=== PATIENT | female | born 1995 | race Caucasian/White ===

== ENCOUNTER 2023-09-19 02:08 | Emergency (ER) | payer BC, SELFPAY ==
[2023-09-19 02:17] VITALS: BP 140/97; PULSE 75; TEMP 37.3; O2SAT 95; BMI 63.5
--- NOTE | 2023-09-19 02:41 | ED.ABDPAIN1 ---
HPI - Abdominal Pain General Chief Complaint: Abdominal Pain Stated Complaint: abd/back pain Time Seen by Provider: 09/19/23 02:36 Source: patient Mode of arrival: Wheelchair Limitations: no limitations History of Present Illness HPI narrative: patient presents complaining of left flank pain. States she was seen at [facility] 2-[address] was performed and neg. Discharged home with Levsin and Toradol. last used these medication yesterday AM. Just got off work and now presents here for same pain. No fever or urinary symptoms Related Data Allergies Allergy/AdvReac Type Severity Reaction Status Date / Time lamotrigine Allergy Mild Rash Verified 09/19/23 02:22 fluticasone [From [employer]] Allergy Rash Verified 09/19/23 02:22 Review of Systems ROS Status of ROS 10 or more systems reviewed and unremarkable except as noted in history and below Exam Constitutional Vital Signs, click to edit/add: Last Vital Signs Temp 99.2 F 09/19/23 02:17 Pulse 75 09/19/23 02:17 Resp 18 09/19/23 02:17 BP 140/97 H 09/19/23 02:17 Pulse Ox 95 09/19/23 02:17 O2 Del Method Room Air 09/19/23 02:17 Common normals: no apparent distress, oriented x3, alert and well nourished [facility] Common normals: normocephalic and head/scalp atraumatic Eye Common normals: PERRL, EOMs intact bilaterally and conjunctivae normal Respiratory Common normals: normal respiratory effort, no retractions and no use of accessory muscles Cardio Common normals: regular rate, regular rhythm, S1 normal heart sound and S2 normal heart sound GI Common normals: Normal to inspection, nondistended, normoactive bowel sounds present Other: mild tenderness LLQ Extremity Common normals: normal to inspection and full ROM Neuro Common normals: oriented x3, CN's II-XII intact bilaterally, moves all extremities and no focal motor deficits Psych Appearance: grossly normal Course Vital Signs Vital signs: Vital Signs Temperature 99.2 F 09/19/23 02:17 Pulse Rate 75 09/19/23 02:17 Respiratory Rate 18 09/19/23 02:17 Blood Pressure 140/97 H 09/19/23 02:17 Pulse Oximetry 95 09/19/23 02:17 Oxygen Delivery Method Room Air 09/19/23 02:17 Temperature 99.2 F 09/19/23 02:17 Pulse Rate 75 09/19/23 02:17 Respiratory Rate 18 09/19/23 02:17 Blood Pressure 140/97 H 09/19/23 02:17 Pulse Oximetry 95 09/19/23 02:17 Oxygen Delivery Method Room Air 09/19/23 02:17 MDM - Abdominal Pain MDM Narrative Medical decision making narrative: patient presents complaining of LLQ pain . Was seen at [facility] 1 days ago with same complaint. CT report retained for that visit and was neg. Patient treated in the department with Bentyl and Toradol and is feeling better. labs WNL except UA with elevated WBC(2-5 WBC) but mod. epithelial cells. Patient denies urinary symptoms. Urine culture ordered. Patient discharged home to followup with her doctor Lab Data Labs: Lab Results 09/19/23 09/19/23 Range/Units 03:10 03:15 WBC 10.5 (4.0-11.0) 10^3/uL RBC 4.31 (4.20-5.40) 10^6/uL Hgb 13.0 (12.0-16.0) g/dL Hct 38.6 (36.0-48.0) % MCV 89.6 (81.0-99.0) fL MCH 30.2 (26.7-34.0) pg MCHC 33.7 (29.9-35.2) g/dL RDW 12.0 (11.0-15.0) % Plt Count 261 (150-450) 10^3/uL MPV 10.3 (9.5-13.5) fL Neut % (Auto) 67.2 (43.0-75.0) % Lymph % (Auto) 27.3 (20.5-60.0) % [place] % (Auto) 3.2 (1.7-12.0) % Eos % (Auto) 1.4 (0.9-7.0) % Baso % (Auto) 0.6 (0.2-2.0) % Neut # (Auto) 7.0 H (1.4-6.5) 10^3/uL Lymph # (Auto) 2.9 (1.2-3.8) 10^3/uL [place] # (Auto) 0.3 (0.3-0.8) 10^3/uL Eos # (Auto) 0.2 (0.0-0.7) 10^3/uL Baso # (Auto) 0.1 (0.0-0.1) 10^3/uL Abs Immat Gran (auto) 0.03 (0.00-0.03) 10^3/uL Imm/Tot Granulo (auto) 0.3 (0.0-0.5) % Sodium 135 L (136-145) mmol/L Potassium 3.7 (3.5-5.1) mmol/L Chloride 101 (98-107) mmol/L Carbon Dioxide 27.5 (21.0-32.0) mmol/L Anion Gap 10.2 BUN 12.0 (7.0-18.0) mg/dL Creatinine 0.90 (0.55-1.02) mg/dL Est GFR ( Amer) >60 (>=60) Est GFR (Non-Af Amer) >60 (>=60) BUN/Creatinine Ratio 13.3 Glucose 105 (74-106) mg/dL Calcium 9.0 (8.5-10.1) mg/dL Total Bilirubin 0.6 (0.2-1.0) mg/dL AST 16 (15-37) U/L ALT 29 (14-59) U/L Alkaline Phosphatase 74 (46-116) U/L Total Protein 7.3 (6.4-8.2) g/dL Albumin 3.2 L (3.4-5.0) g/dL Globulin 4.1 g/dL Albumin/Globulin Ratio 0.8 Urine Color Lt. yellow (YELLOW) Urine Clarity Clear (CLEAR) Urine pH 6.0 (5.0-9.0) Ur Specific [place] 1.020 (1.005-1.025) Urine Protein Negative (NEG/TRACE) mg/dL Urine Glucose (UA) Negative (NEGATIVE) mg/dL Urine Ketones Negative (NEGATIVE) mg/dL Urine Occult Blood Negative (NEGATIVE) Urine Nitrite Negative (NEGATIVE) Urine Bilirubin Negative (NEGATIVE) Urine Urobilinogen 1.0 (0.2-1.0) EU/dL Ur Leukocyte Esterase Small A (NEGATIVE) Urine RBC 0-2 (0-2) #/HPF Urine WBC 2-5 A (NONE SEEN) #/HPF Ur Squamous Epith Cells Moderate A (NONE/RARE) #/LPF Urine Crystals Seen A (None Seen) #/HPF Amorphous Sediment Few Urine Bacteria Small A (NONE SEEN) #/HPF Urine Casts None seen (NONE SEEN) #/LPF Urine Mucus None seen (NONE SEEN) Ur Culture Indicated? Yes Discharge Plan Discharge Stand Alone Forms: Portal Instructions Chief Complaint: Abdominal Pain Clinical Impression: Abdominal pain Patient Disposition: Home, Self-Care Print Language: Urdu Instructions: Abdominal Pain (ED) Additional Instructions: follow up with your doctor in 2-3 days for recheck Referrals: Physician,Non-Staff, MD [Primary Care Provider] - 1 week
[2023-09-19 03:18] LABS: Basophils Absolute Auto 0.1 10^3/uL (0.0-0.1); Basophils Percent Auto 0.6 % (0.2-2.0); Eosinophils Absolute Auto 0.2 10^3/uL (0.0-0.7); Eosinophils Percent Auto 1.4 % (0.9-7.0); Hematocrit 38.6 % (36.0-48.0); Immature Granulocytes Abs Auto 0.03 10^3/uL (0.00-0.03); Immature Granulocytes Pct Auto 0.3 % (0.0-0.5); Lymphocytes Absolute Auto 2.9 10^3/uL (1.2-3.8); Lymphocytes Percent Auto 27.3 % (20.5-60.0); Mean Corpuscular HGB Conc 33.7 g/dL (29.9-35.2); Mean Corpuscular Hemoglobin 30.2 pg (26.7-34.0); Mean Corpuscular Volume 89.6 fL (81.0-99.0); Mean Platelet Volume 10.3 fL (9.5-13.5); Monocytes Absolute Auto 0.3 10^3/uL (0.3-0.8); Monocytes Percent Auto 3.2 % (1.7-12.0); Neutrophils Percent Auto 67.2 % (43.0-75.0); Platelet Count 261 10^3/uL (150-450); Red Blood Count 4.31 10^6/uL (4.20-5.40); White Blood Count 10.5 10^3/uL (4.0-11.0)
[2023-09-19 03:24] LABS: Bilirubin Urine NEGATIVE (NEGATIVE); Blood Urine NEGATIVE (NEGATIVE); Clarity Urine CLEAR (CLEAR); Color Urine LT. YELLOW (YELLOW); Glucose Urine UA NEGATIVE (NEGATIVE); Ketones Urine NEGATIVE (NEGATIVE); Leukocyte Esterase Urine SMALL (NEGATIVE); Nitrite Urine NEGATIVE (NEGATIVE); Protein Urine NEGATIVE (NEG/TRACE); Urine Microscopic Indicated YES
[2023-09-19] MEDS: DICYCLOMINE HCL 20 MG/2 ML VIAL IM (03:31)
[2023-09-19] MEDS: KETOROLAC TROMETHAMINE 60 MG/2 ML VIAL IM (03:31)
[2023-09-19 03:33] LABS: Alanine Aminotransferase 29 U/L (14-59); Albumin Globulin Ratio 0.8; Albumin Level 3.2 g/dL (3.4-5.0); Alkaline Phosphatase 74 U/L (46-116); Anion Gap 10.2; Aspartate Amino Transferase 16 U/L (15-37); BUN Creatinine Ratio 13.3; Bilirubin Total 0.6 mg/dL (0.2-1.0); Carbon Dioxide 27.5 mmol/L (21.0-32.0); Chloride 101 mmol/L (98-107); Estimated GFR (African America >60 (>=60); Estimated GFR (Non-African Ame >60 (>=60); Globulin 4.1 g/dL; Glucose 105 mg/dL (74-106); Potassium 3.7 mmol/L (3.5-5.1); Sodium 135 mmol/L (136-145); Total Protein 7.3 g/dL (6.4-8.2)
[2023-09-19 03:36] LABS: Amorphous Sediment Urine FEW; Bacteria Urine SMALL #/HPF (NONE SEEN); Cast Seen? NONE SEEN #/LPF (NONE SEEN); Crystals Seen? Seen #/HPF (None Seen); Mucus Urine NONE SEEN (NONE SEEN); RBC Urine 0-2 #/HPF (0-2); Squamous Epithelial Cell Urine MODERATE #/LPF (NONE/RARE)
[2023-09-19 03:37] LABS: Urine Culture Indicated YES
[2023-09-19 04:27] VITALS: BP 130/85; PULSE 80; O2SAT 96
== END 2023-09-19 04:29 | disposition home or self-care (01) ==
PROVIDERS: Emergency Provider Internal Medicine
DX: R10.9 Unspecified abdominal pain (principal)
CPT/HCPCS: 36415; 80053; 81001; 85025; 87086; 96372; 99284; J0500; J1885